=== PATIENT | female | born 1990 | race Caucasian/White ===

== ENCOUNTER 2025-04-24 10:57 | Emergency (ER) | payer MEDICAID ==
[~2025-04-24] VITALS: Ht 165.1 cm; Wt 145.7 kg
[2025-04-24 11:59] LABS: CALCIUM, SERUM 9.0 mg/dL (8.5-10.1); CREATININE 0.8 mg/dL (0.6-1.3); SODIUM SERUM 141.0 mmol/L (136-145); UREA NITROGEN, BLOOD 12.0 mg/dL (7-18)
[2025-04-24] MEDS ORDERED: dexaMETHasone SOD PHOSPHATE 1 ML ONE (12:03)
[2025-04-24] MEDS ORDERED: KETOROLAC TROMETHAMINE INJ 30 MG/ML VIAL ONE (12:03)
[2025-04-24] MEDS ORDERED: PROCHLORPERAZINE EDISYLATE 10 MG/2 ML VIAL ONE (12:03)
[2025-04-24] MEDS ORDERED: Magnesium 1GM/D5W 100ML PREMIX 100 ML IV ONE (12:03)
[2025-04-24] MEDS: dexaMETHasone SOD PHOSPHATE 10 MG/ML VIAL IV ONE (12:19)
[2025-04-24] MEDS: PROCHLORPERAZINE EDISYLATE 10 MG/2 ML VIAL IVP ONE (12:20)
[2025-04-24] MEDS: KETOROLAC TROMETHAMINE INJ 30 MG/ML VIAL IV ONE (12:20)
[2025-04-24] MEDS: IV NS 0.9% 1,000 ML BAG IV ONE (12:20)
[2025-04-24] MEDS: Magnesium 1GM/D5W 100ML PREMIX PIGGYBACK IV ONE (12:20)
[2025-04-24 12:32] LABS: PLATELET COUNT (AUTO) 296 K/uL (150-450); RED BLOOD CELL COUNT(AUTO) 4.32 MIL/uL (4.0-5.2); RED CELL DISTRIBUTION WIDTH 14.8 % (11.5-15.0); WHITE BLOOD COUNT (AUTO) 6.8 K/uL (4.3-11.0)
[2025-04-24] MEDS ORDERED: SUMA50TA PO (13:51)
[2025-04-24] MEDS ORDERED: PROC-11 PO (13:51)
[2025-04-24] MEDS ORDERED: KETO10TA2 PO (13:51)
[2025-04-24] MEDS ORDERED: MAGN400T52 PO (13:51)
[2025-04-24 14:09] VITALS: BP 146/72; TEMP 98.8; O2SAT 98
== END 2025-04-24 11:51 | disposition home or self-care (01) ==
LOC: ER 11:38
DX: G44.009 Cluster headache syndrome, unspecified, not intractable (principal); F41.9 Anxiety disorder, unspecified; R10.2 Pelvic and perineal pain; Z88.0 Allergy status to penicillin; Z60.2 Problems related to living alone
CPT/HCPCS: 99285; 96365; 96375; 70450; 85025; 80048; 84703; 36415; 84702; J1885; J0780; J1100; J3475; A4223 ×2